=== PATIENT | female | born 1990 | race Caucasian/White ===

== ENCOUNTER 2017-09-27 18:22 | Emergency (ER) | payer SELFPAY ==
[~2017-09-27] VITALS: Ht 154.9 cm; Wt 58.6 kg
[2017-09-27 18:29] VITALS: BP 125/65
--- NOTE | 2017-09-27 18:35 | NUR ---
DR SMITH EVALUATING AAO PT AT BEDSIDE
--- NOTE | 2017-09-27 18:38 | NUR ---
Patient ambulated to bed 12. RN evaluating patient at bedside.
[2017-09-27] MEDS ORDERED: predniSONE 20 MG TAB PO ONE (18:40)
[2017-09-27] MEDS ORDERED: diphenhydrAMINE 50 MG CAP PO ONE (18:40)
[2017-09-27] MEDS ORDERED: FAMOTIDINE 20 MG TAB PO ONE (18:40)
--- NOTE | 2017-09-27 18:40 | NUR ---
PATIENT PRESENTS TO ED WITH C/O RASH AFTER WALKING THROUGH A PUMPKIN PATCH ABOUT AN HOUR PRIOR TO ADMISSION; RASH ON NECK UPPER TORSO, BL UE/LE, NO C/O SOB OR PAIN HX; DENIES RX; TOOK CLARITIN 30 MIN AGO DENIES N/V/D; SKIN IS PINK/WARM/DRY; AAOX4 WITH EVEN AND STEADY GAIT; LUNGS CLEAR BL; HR EVEN AND REGULAR; PT DENIES ANY FEVER, CP, SOB, OR COUGH AT THIS TIME; PATIENT STATES PAIN OF 0/10 AT THIS TIME; VSS; PATIENT POSITIONED FOR COMFORT; HOB ELEVATED; BEDRAILS UP X2; BED DOWN. ER MD MADE AWARE OF PT STATUS.
--- NOTE | 2017-09-27 18:41 | NUR ---
Patient ambulated to bed 6 for further care. RN evaluating patient at bedside.
--- NOTE | 2017-09-27 18:45 | NUR ---
PT C/O SEVERE PRURITUS AND LARGE HIVES THROUGHOUT BODY---EYELIDS NOTED SWELLING DENIES SOB, FULL CLEAR SPEECH, NO TONGUE OR LIP SWELLING NOTED--- MEDICATED WRITTEN, WILL CONTINUE TO OBSERVE FOR CHANGES.
--- NOTE | 2017-09-27 19:16 | NUR ---
pt resting in bed, denies any pain. No s/s of distress noted at the moment.
[2017-09-27 20:00] VITALS: BP 95/49
--- NOTE | 2017-09-27 20:00 | NUR ---
Patient discharged with v/s stable. Written and verbal after care instructions given and explained. Patient alert, oriented and verbalized understanding of instructions. Ambulatory with steady gait. All questions addressed prior to discharge. ID band removed. Patient advised to follow up with PMD OR RETURN TO ER IF CONDITION WORSENS. Rx of PEPCID, PREDNISONE, AND BENADRYL TABS given. Patient educated on indication of medication including possible reaction and side effects. Opportunity to ask questions provided and answered.
== END 2017-09-27 20:00 | disposition home or self-care (01) ==
LOC: MED 18:22
DX: T78.49XA Other allergy, initial encounter (principal); X58.XXXA Exposure to other specified factors, initial encounter
CPT/HCPCS: 99284; J7512; Q0163